=== PATIENT | female | born 1975 | race African-American/Black ===

== ENCOUNTER 2021-12-09 12:28 | Emergency (ER) | payer OTHER ==
[~2021-12-09] VITALS: Ht 157.5 cm; Wt 101.0 kg
[2021-12-09 14:06] LABS: BASOPHILS % 0.8 % (0.0-2.0); HEMOGLOBIN. 9.7 g/dL (12.0-16.0); LYMPHOCYTES % 19.5 % (20.0-50.0); MEAN CORPUSCULAR VOLUME 89.8 fL (81.0-99.0); MEAN PLATELET VOLUME 6.7 fl (7.4-10.4); NEUTROPHILS % 71.7 % (40.0-76.0); PLATELET 364 x1000/uL (130-400); RED BLOOD CELL COUNT 3.11 mill/uL (4.2-5.4); RED CELL DISTRIBUTION WIDTH 14.3 % (11.6-14.6)
[2021-12-09 14:13] LABS: CHLORIDE 107 mEq/L (98-107)
[2021-12-09 14:16] LABS: HCG SCREEN NEGATIVE
[2021-12-09 14:20] LABS: INR 1.1; PROTHROMBIN TIME 11.5 sec (9.6-11.0)
[2021-12-09] MEDS ORDERED: CEFTRIAXONE 1 G PREMIX 50 ML IV SCH (17:00)
[2021-12-09 18:31] LABS: CLARITY URINE CLEAR (CLEAR); COLOR URINE YELLOW (YELLOW); KETONES URINE NEGATIVE (NEGATIVE); LEUKOCYTE ESTERASE URINE NEGATIVE (NEGATIVE); NITRITE URINE NEGATIVE (NEGATIVE); OCCULT BLOOD URINE NEGATIVE (NEGATIVE); PROTEIN URINE NEGATIVE (NEGATIVE); SPECIFIC GRAVITY URINE 1.008 (1.005-1.030); UROBILINOGEN URINE 0.2 E.U./dL (0.2-1.0)
[2021-12-09 18:45] LABS: *AMPHETAMINES SCREEN URINE NEGATIVE (NEGATIVE); *BARBITURATES SCREEN URINE NEGATIVE (NEGATIVE); *BENZODIAZEPINES SCREEN URINE NEGATIVE (NEGATIVE); *COCAINE SCREEN URINE NEGATIVE (NEGATIVE); METHADONE URINE SCREEN NEGATIVE (NEGATIVE); OPIATES URINE SCREEN NEGATIVE (NEGATIVE)
[2021-12-09 18:46] LABS: CANNABINOID URINE SCREEN NEGATIVE (NEGATIVE); PHENCYCLIDINE URINE SCREEN NEGATIVE (NEGATIVE)
[2021-12-10 00:32] VITALS: BP 158/98
== END 2021-12-10 00:53 | disposition short-term general hospital (02) ==
LOC: ER 12:28 → EDBEDREQ 15:33 → EDBEDREQSVC 15:33 → EDBEDREQTM 15:33 → SUPCPDRO 16:23 → ER 12-10 00:53 → CANBEDREQ 12-10 16:37
DX: N17.9 Acute kidney failure, unspecified (principal); N32.89 Other specified disorders of bladder; D64.9 Anemia, unspecified; I10 Essential (primary) hypertension; Z20.822 Contact with and (suspected) exposure to COVID-19; Z87.440 Personal history of urinary (tract) infections
CPT/HCPCS: 36415; 71045; 74176; 80053; 80305; 80320; 81003; 83690; 83880; 84484; 84703; 85025; 85610; 87040; 87086; 87426; 93971; 96365; 96366; 99291; J0696; A5200; G0480